=== PATIENT | female | born 1950 | race Caucasian/White ===

== ENCOUNTER 2017-09-08 12:40 | Emergency (ER) | payer OTHER ==
[~2017-09-08] VITALS: Ht 162.6 cm; Wt 68.3 kg
[2017-09-08 12:46] VITALS: TEMP 36.8; Ht 162.6 cm; Wt 68.3 kg
[2017-09-08 12:57] VITALS: O2SAT 100
[2017-09-08] MEDS ORDERED: CALC-354 PO (13:01)
[2017-09-08] MEDS ORDERED: SIMV5TAB2 PO (13:01)
[2017-09-08] MEDS ORDERED: MULT-506 PO (13:01)
[2017-09-08] MEDS ORDERED: ASPI81TA28 PO (13:01)
[2017-09-08] MEDS ORDERED: SODIUM CHLORIDE 0.9% 1000ML 1,000 ML IV STA (13:10)
[2017-09-08] MEDS ORDERED: MAGNESIUM SULFATE 1GM / D5W 100 ML IV STA (13:10)
--- NOTE | 2017-09-08 13:12 | EMERGENCY ROOM VISIT NOTE ---
History Report prepared by Cherelle: Natalie Lo Under the Supervision of: Dr. Benedicto Weber M.D. First contact with patient: 12:46 Chief Complaint: SYNCOPE Stated Complaint: SYCNOPE, SHORTNESS OF BREATH History of Present Illness The patient is a 66 year old white female with a past medical history of mitral valve prolapse and high cholesterol who presents to the ED with a cc of an episode of syncope beginning today. The patient notes she was feeling very hot and dizzy after using a push mower, and sat down on a lawn chair on her porch. Her reports the patient did not seem to hear him when he called her name , and he noticed her head fell back when she sat into the chair and he heard what sounded like a snore. He states she then appeared to not be breathing, so he gave her a few [id number] breaths, and she came to. The states the patient then began vomiting steadily for a bit, and stopped before the ambulance arrived. He states she then began vomiting again once she got into the ambulance. The patient states she currently feels a little nauseous and as though she is SOB. She denies any coughs, fevers, chills, or headache. She notes she feels as though she has been drinking enough fluids the past few days. The patient denies a history of HTN, diabetes, or any surgical history. Source of History: patient, spouse/significant other () Onset: today Position: head Quality: other (syncope) Timing: other (episode) Associated Symptoms: + SOB, + nausea, + vomiting, No fevers, No chills, No headache, No cough Note: Associated symptoms: feeling hot, dizziness Review of Systems See HPI for pertinent positives and negatives. A total of ten systems were reviewed and were otherwise negative. Past Medical & Surgical Medical Problems: (1) High cholesterol (2) MVP (mitral valve prolapse) (3) Syncope Surgical Problems: (1) History of hysterectomy Family History FHx: heart disease FHx: hypertension Social History Smoking Status: Never Smoker Smokeless Tobacco Use: No Alcohol Use: occasionally Marital Status: Housing Status: lives with significant other () Occupation Status: retired Current/Historical Medications Scheduled Aspirin (Aspirin Ec), 81 MG PO DAILY Calcium Carbonate-Cholecalcife (Caltrate 600+D), 1 TAB PO DAILY Multivitamin (Multivitamin), 1 TAB PO DAILY Simvastatin (Zocor), Unknown Dose PO QPM Allergies Coded Allergies: Codeine (Unverified Allergy, Unknown, ., 09/08/17) Physical Exam Vital Signs Date Time Temp Pulse Resp B/P (MAP) Pulse Ox O2 Delivery O2 Flow Rate FiO2 09/08/17 18:20 75 15 125/75 98 09/08/17 17:32 74 09/08/17 16:45 73 18 114/76 96 Room Air 09/08/17 15:58 65 116/71 95 Room Air 09/08/17 14:34 82 16 120/78 09/08/17 14:32 59 16 128/74 60 115/68 64 124/79 09/08/17 13:52 48 16 123/59 100 Room Air 09/08/17 13:27 46 09/08/17 12:57 100 Room Air 09/08/17 12:47 61 09/08/17 12:46 36.8 59 16 111/61 100 Room Air Physical Exam GENERAL: Awake, alert, well-appearing, NAD HENT: Normocephalic, atraumatic. EYES: Normal conjunctiva. Sclera non-icteric. PERRL. No anisocoria. NECK: Supple. No nuchal rigidity. FROM. RESPIRATORY: CTAB, no rhonchi, wheezing, crackles CARDIAC: Bradycardic, normal rhythm, no MRG ABDOMEN: Soft, NTND, BS+ MSK: No chest wall TTP, no LE edema NEURO: GCS 15, CN 2-12 intact, moves all 4s on command. 4/5 strength all extremities. SKIN: No rash or jaundice noted. Medical Decision & Procedures ER Provider Diagnostic Interpretation: Radiology results as stated below per my review and radiologist interpretation: CT HEAD WITHOUT CONTRAST (CT) CLINICAL HISTORY: syncope COMPARISON STUDY: No previous studies for comparison. TECHNIQUE: Axial CT of the brain is performed from the vertex to the skull base. IV contrast was not administered for this examination. A dose lowering technique was utilized adhering to the principles of ALARA. CT DOSE: 623.48 mGy.cm FINDINGS: No intra or extra-axial mass lesions are visualized. There is no CT evidence of acute cortical infarction. There is no evidence of midline shift. There is no acute hemorrhage. No calvarial fractures are visualized. There is no evidence of pathologic ventricular dilatation. There is no evidence of acute sinusitis IMPRESSION: No acute intracranial findings Electronically signed by: Ilya Arnold M.D. 09/08/2017 1:46 PM Dictated Date/Time: 09/08/2017 1:45 PM CHEST ONE VIEW PORTABLE CLINICAL HISTORY: Altered mental status. Weakness. COMPARISON STUDY: No previous studies for comparison. FINDINGS: The cardiac and mediastinal contours are normal. There is no evidence of focal pulmonary consolidation. There is no evidence of failure. No pleural effusions are visualized.[ IMPRESSION: No active disease in the chest. Electronically signed by: Ilya Arnold M.D. 09/08/2017 1:22 PM Dictated Date/Time: 09/08/2017 1:22 PM Laboratory Results 09/08/17 12:44 Red Blood Count 4.40, Mean Corpuscular Volume 89.8, Mean Corpuscular Hemoglobin 30.9, Mean Corpuscular Hemoglobin Concent 34.4, Mean Platelet Volume 9.4, Neutrophils (%) (Auto) 73.4, Lymphocytes (%) (Auto) 20.2, Monocytes (%) (Auto) 5.9, Eosinophils (%) (Auto) 0.0, Basophils (%) (Auto) 0.1, Neutrophils # (Auto) 5.73, Lymphocytes # (Auto) 1.58, Monocytes # (Auto) 0.46, Eosinophils # (Auto) 0.00, Basophils # (Auto) 0.01 09/08/17 15:18 Test 09/08/17 12:44 09/08/17 15:18 White Blood Count 7.81 K/uL (4.8-10.8) Red Blood Count 4.40 M/uL (4.2-5.4) Hemoglobin 13.6 g/dL (12.0-16.0) Hematocrit 39.5 % (37-47) Mean Corpuscular Volume 89.8 fL (80-100) Mean Corpuscular Hemoglobin 30.9 pg (25-34) Mean Corpuscular Hemoglobin Concent 34.4 g/dl (32-36) Platelet Count 158 K/uL (130-400) Mean Platelet Volume 9.4 fL (7.4-10.4) Neutrophils (%) (Auto) 73.4 % Lymphocytes (%) (Auto) 20.2 % Monocytes (%) (Auto) 5.9 % Eosinophils (%) (Auto) 0.0 % Basophils (%) (Auto) 0.1 % Neutrophils # (Auto) 5.73 K/uL (1.4-6.5) Lymphocytes # (Auto) 1.58 K/uL (1.2-3.4) Monocytes # (Auto) 0.46 K/uL (0.11-0.59) Eosinophils # (Auto) 0.00 K/uL (0-0.5) Basophils # (Auto) 0.01 K/uL (0-0.2) RDW Standard Deviation 40.4 fL (36.4-46.3) RDW Coefficient of Variation 12.3 % (11.5-14.5) Immature Granulocyte % (Auto) 0.4 % Immature Granulocyte # (Auto) 0.03 K/uL (0.00-0.02) Prothrombin Time 10.6 SECONDS (9.0-12.0) Prothromb Time International Ratio 1.0 (0.9-1.1) Activated Partial Thromboplast Time 22.4 SECONDS (21.0-31.0) Partial Thromboplastin Ratio 0.9 Magnesium Level 1.8 mg/dl (1.8-2.4) Total Bilirubin 0.7 mg/dl (0.2-1) Direct Bilirubin 0.2 mg/dl (0-0.2) Aspartate Amino Transf (AST/SGOT) 24 U/L (15-37) Alanine Aminotransferase (ALT/SGPT) 26 U/L (12-78) Alkaline Phosphatase 56 U/L (45-117) Troponin I < 0.015 ng/ml (0-0.045) Total Protein 6.7 gm/dl (6.4-8.2) Albumin 3.8 gm/dl (3.4-5.0) Thyroid Stimulating Hormone (TSH) 3.150 uIu/ml (0.300-4.500) Urine Color YELLOW Urine Appearance CLEAR (CLEAR) Urine pH 8.5 (4.5-7.5) Urine Specific Olga 1.010 (1.000-1.030) Urine Protein NEG (NEG) Urine Glucose (UA) NEG (NEG) Urine Ketones TRACE (NEG) Urine Occult Blood NEG (NEG) Urine Nitrite NEG (NEG) Urine Bilirubin NEG (NEG) Urine Urobilinogen NEG (NEG) Urine Leukocyte Esterase TRACE (NEG) Urine WBC (Auto) 1-5 /hpf (0-5) Urine RBC (Auto) 0-4 /hpf (0-4) Urine Hyaline Casts (Auto) 0 /lpf (0-5) Urine Epithelial Cells (Auto) 5-10 /lpf (0-5) Urine Bacteria (Auto) NEG (NEG) Anion Gap 8.0 mmol/L (3-11) Est Creatinine Clear Calc Drug Dose 80.9 ml/min Estimated GFR () 107.2 Estimated GFR (Non- 92.5 BUN/Creatinine Ratio 19.8 (10-20) Calcium Level 7.5 mg/dl (8.5-10.1) Phosphorus Level 1.8 mg/dl (2.5-4.9) Laboratory results reviewed by me Medications Administered Medications (Trade) Dose Ordered Sig/Karine Route Start Time Stop Time Status Last Admin Dose Admin Sodium Chloride 1,000 ml @ 999 mls/hr Q1H1M STAT IV 09/08/17 13:10 09/08/17 14:10 DC 09/08/17 13:55 999 MLS/HR Magnesium Sulfate 100 ml @ 100 mls/hr NOW STAT IV 09/08/17 13:10 09/08/17 14:09 DC 09/08/17 13:55 100 MLS/HR Ondansetron HCl (Zofran Inj) 4 mg NOW STAT IV 09/08/17 13:39 09/08/17 13:40 DC 09/08/17 13:54 4 MG Potassium/ Phosphorus/Sodium (Phospha 250 Neutral 155-852-130 Mg) 2 tab QID PO 09/08/17 17:00 09/08/17 19:02 DC 09/08/17 17:39 2 TAB Potassium Phosphate 30 mmol/ Sodium Chloride 510 ml @ 88 mls/hr TODAY@1545 IV 09/08/17 15:45 09/08/17 19:02 DC 09/08/17 15:56 88 MLS/HR Potassium Chloride (Klor-Con Tab) 40 meq NOW STAT PO 09/08/17 16:06 09/08/17 16:07 DC 09/08/17 16:45 40 MEQ Calcium Carbonate (Tums Chew Tab) 1,500 mg NOW STAT PO 09/08/17 16:06 09/08/17 16:07 DC 09/08/17 16:46 1,500 MG ECG Per My Interpretation Indication: chest pain Rate (beats per minute): 55 Rhythm: sinus bradycardia Findings: prolonged QT, other (Left axis deviation) Change: no significant change (from 08/26/17) ED Course 1239: The patient was evaluated in room A3. A complete history and physical exam was performed. 1445: Upon reevaluation, the patient states she is feeling better. 1509: I discussed the patient's case with Kike Hdz cardiology. He recommends repeat blood work and EKG. 1644: I updated and reevaluated the patient. 1741: I discussed the case again with Kike Hdz cardiology. He is comfortable sending the patient home if there is a reasonable explanation for her episode of syncope. 1750: I reevaluated the patient. Discussed results and discharge instructions: she verbalized understanding and agreement. The patient is ready for discharge. Medical Decision Nursing notes reviewed. Ancillary studies and prior records reviewed. The patient is a 66 year old white female with a past medical history of mitral valve prolapse and high cholesterol who presents to the ED with a cc of an episode of syncope beginning today. Etiologies such as vasovagal event, infection, hypoglycemia, electrolyte abnormalities, cardiac sources, intracerebral event, toxicologic, neurologic, as well as others were entertained. Patient was seen and evaluated the bedside. Patient did have an episode of possible syncope. Per the patient's she had been pushed mowing the lawn outside it was hot and humid today and the patient was feeling very to fatigue and lightheaded and sat down and then the patient's thought that maybe she had stopped breathing so she did give 1 [id number] and the patient acutely woke up did have some vomiting. Patient on exam does have a low voice and has generalized weakness. The patient has a nonfocal neurologic exam otherwise. The patient denies any chest pain but does complain of some mild shortness of breath. Patient is not tachycardic, hypoxic, tachypneic, or hypotensive. Patient did have blood work completed along with EKG, troponin, chest x-ray. Patient's blood work is fairly unremarkable with the exception of very low false. This is ordered with IV and p.o. Patient's EKG did show prolonged QT. She had been given a dose of Zofran prior to seeing this. I did speak with the on-call grinder operator surface tool given this questionable syncope episode with prolonged QT and whether not there would be any additional treatment that she would need. Patient was given mag empirically. Cardiology did recommend repeat blood work as well as repeat EKG. Patient's repeat blood work did show mild low calcium and potassium. These were repleted. Patient's phosphorus was improved. Patient's EKG showed normal sinus but did have prolonged QT still. I did speak with the on-call grinder operator surface tool second time and he stated that he believes that given that she was outside for was hot and humid and had not potentially been drinking enough fluids at this is most likely etiology of her brief episode of unresponsiveness. I believe this is also reasonable especially as the patient is looking and feeling much improved. She was told to follow-up with her grinder operator surface tool and to return if they have any worsening symptoms. Patient was also advised to hydrate liberally with clear liquids and to avoid prolonged periods outside especially during peak times of day. Patient was given strict follow-up, discharge, and return precautions. All questions were answered. Patient was deemed suitable for outpatient follow-up at this time. Patient agreed with the plan of care and was safely discharged home. Medication Reconcilliation Current Medication List: was personally reviewed by me Blood Pressure Screening Patient's blood pressure: Normal blood pressure Blood pressure disposition: Did not require urgent referral Consults Time Called: 1502 Consulting Physician: Kike Hdz cardiology Returned Call: [phone]: I discussed the patient's case with Kike Hdz cardiology. He recommends repeat blood work and EKG. 1644: I updated and reevaluated the patient. 1741: I discussed the case again with Kike Hdz cardiology. He is comfortable sending the patient home if there is a reasonable explanation for her episode of syncope. Impression Primary Impression: Syncope Additional Impressions: Hypophosphatemia Dehydration Hypokalemia Hypocalcemia Scribe Attestation The scribe's documentation has been prepared under my direction and personally reviewed by me in its entirety. I confirm that the note above accurately reflects all work, treatment, procedures, and medical decision making performed by me. Departure Information Dispostion Home / Self-Care Referrals No Doctor, Assigned (PCP) Forms HOME CARE DOCUMENTATION FORM, IMPORTANT VISIT INFORMATION Patient Instructions ED Hypocalcemia, Hypokalemia Dc, Hypophosphatemia Dc, My [facility] Additional Instructions Please return to the emergency department if you have worsening or recurrent symptoms not amenable to at-home treatment. Please call for a follow-up appointment with her primary care physician. Please take your medications as prescribed. If you have other concerns and/or complaints please feel free to also call your primary care physician's office or return the ED for further evaluation, management, and treatment. You may take 600 mg Ibuprofen every 6 hours as needed for pain/fever with food unless told by your physician not to take NSAIDs. You may take tylenol 650 mg every 6 hours as needed for pain/fever unless told by your physician to not take it or have liver problems. You may take motrin and tylenol separately or at the same time. Take your medications as prescribed. Please make sure you drink plenty of clear liquids. You may call for a follow- up appointment with your grinder operator surface tool. You have been examined and treated today on an emergency basis only. This is not a substitute for, or an effort to provide, complete comprehensive medical care. It is impossible to recognize and treat all injuries or illnesses in a single emergency department visit. It is therefore important that you follow up closely with [facility], your PCP, and/or your specialist(s). Call as soon as possible for an appointment. Thank you for your time and consideration. I look forward to speaking with you again soon. Please don't hesitate to call us if you have any questions. Problem Qualifiers Primary Impression: Syncope Syncope type: heat syncope Encounter type: initial encounter Qualified Codes: T67.1XXA - Heat syncope, initial encounter
[2017-09-08 13:18] LABS: BASO % 0.1 %; BASO ABS # 0.01 K/uL (0-0.2); HEMATOCRIT 39.5 % (37-47); HEMOGLOBIN 13.6 g/dL (12.0-16.0); IG# 0.03 K/uL (0.00-0.02); LYMPH % 20.2 %; LYMPH ABS # 1.58 K/uL (1.2-3.4); MEAN CELL VOLUME 89.8 fL (80-100); MEAN CORPUSCULAR HEMOGLOBIN 30.9 pg (25-34); MEAN CORPUSCULAR HGB CONC 34.4 g/dl (32-36); MEAN PLATELET VOLUME 9.4 fL (7.4-10.4); MONO % 5.9 %; MONO ABS # 0.46 K/uL (0.11-0.59); NEUT % 73.4 %; NEUT ABS # 5.73 K/uL (1.4-6.5); PLATELET COUNT 158 K/uL (130-400); RED CELL DISTRIBUTION WIDTH CV 12.3 % (11.5-14.5); RED CELL DISTRIBUTION WIDTH SD 40.4 fL (36.4-46.3); WHITE BLOOD COUNT 7.81 K/uL (4.8-10.8)
--- NOTE | 2017-09-08 13:24 | DIAGNOSTIC IMAGING REPORT ---
CHEST ONE VIEW PORTABLE CLINICAL HISTORY: Altered mental status. Weakness. COMPARISON STUDY: No previous studies for comparison. FINDINGS: The cardiac and mediastinal contours are normal. There is no evidence of focal pulmonary consolidation. There is no evidence of failure. No pleural effusions are visualized.[ IMPRESSION: No active disease in the chest. Electronically signed by: Ilya Arnold M.D. 09/08/2017 1:22 PM Dictated Date/Time: 09/08/2017 1:22 PM
[2017-09-08 13:31] LABS: PTT PATIENT 22.4 SECONDS (21.0-31.0)
[2017-09-08] MEDS ORDERED: ONDANSETRON INJ 2 MG/ML 2 ML VIAL IV STA (13:39)
--- NOTE | 2017-09-08 13:47 | DIAGNOSTIC IMAGING REPORT ---
CT HEAD WITHOUT CONTRAST (CT) CLINICAL HISTORY: syncope COMPARISON STUDY: No previous studies for comparison. TECHNIQUE: Axial CT of the brain is performed from the vertex to the skull base. IV contrast was not administered for this examination. A dose lowering technique was utilized adhering to the principles of ALARA. CT DOSE: 623.48 mGy.cm FINDINGS: No intra or extra-axial mass lesions are visualized. There is no CT evidence of acute cortical infarction. There is no evidence of midline shift. There is no acute hemorrhage. No calvarial fractures are visualized. There is no evidence of pathologic ventricular dilatation. There is no evidence of acute sinusitis IMPRESSION: No acute intracranial findings Electronically signed by: Ilya Arnold M.D. 09/08/2017 1:46 PM Dictated Date/Time: 09/08/2017 1:45 PM
[2017-09-08 13:48] LABS: ALBUMIN 3.8 gm/dl (3.4-5.0); ALKALINE PHOSPHATASE 56 U/L (45-117); ALT/SGPT 26 U/L (12-78); AST/SGOT 24 U/L (15-37); BLOOD UREA NITROGEN 16 mg/dl (7-18); CALCIUM 9.1 mg/dl (8.5-10.1); CARBON DIOXIDE 19 mmol/L (21-32); CREATININE 0.89 mg/dl (0.60-1.20); GLUCOSE 174 mg/dl (70-99); PHOSPHORUS 0.5 mg/dl (2.5-4.9); POTASSIUM 3.6 mmol/L (3.5-5.1); SODIUM 140 mmol/L (136-145); TOTAL PROTEIN 6.7 gm/dl (6.4-8.2)
[2017-09-08] MEDS ORDERED: POTASSIUM PHOS 3 MMOL/1 ML INFUSION IV STA (14:14)
[2017-09-08] MEDS ORDERED: POTASSIUM PHOSPHATE INJ 30 MMOL in SODIUM CHLORIDE 0.9% 500ML 500 ML IV SCH (15:45)
[2017-09-08 15:49] LABS: CREATININE 0.65 mg/dl (0.60-1.20); POTASSIUM 3.1 mmol/L (3.5-5.1)
[2017-09-08 15:53] LABS: CALCIUM 7.5 mg/dl (8.5-10.1)
[2017-09-08] MEDS ORDERED: POTASSIUM CHLORIDE 20 MEQ TABCR PO STA (16:06)
[2017-09-08] MEDS ORDERED: CALCIUM CARBONATE 500 MG CHEWABLE PO STA (16:06)
[2017-09-08] MEDS ORDERED: POT PHOSPHATE MONOBASIC W/ SOD TAB PO SCH (17:00)
[2017-09-08 17:23] LABS: PHOSPHORUS 1.8 mg/dl (2.5-4.9)
[2017-09-08 18:20] VITALS: BP 125/75; PULSE 75; O2SAT 98
== END 2017-09-08 18:20 | disposition home or self-care (01) ==
LOC: C.EDA 12:44
DX: T67.1XXA Heat syncope, initial encounter (principal); X30.XXXA Exposure to excessive natural heat, initial encounter; E83.39 Other disorders of phosphorus metabolism; E86.0 Dehydration; E87.6 Hypokalemia; E83.51 Hypocalcemia; E78.00 Pure hypercholesterolemia, unspecified; I34.1 Nonrheumatic mitral (valve) prolapse; Z90.710 Acquired absence of both cervix and uterus; Z79.82 Long term (current) use of aspirin; Z79.899 Other long term (current) drug therapy; Z88.5 Allergy status to narcotic agent